=== PATIENT | female | born 1970 | race Caucasian/White ===

== ENCOUNTER 2021-09-23 20:31 | Emergency (ER) | payer OTHER ==
[~2021-09-23] VITALS: Ht 175.3 cm; Wt 134.7 kg
--- NOTE | 2021-09-23 21:18 | RAD ---
Exam: Abdomen one view INDICATION: Abdominal pain TECHNIQUE: Supine view the abdomen Comparisons: None FINDINGS: Air and stool are noted throughout the colon to level the rectum in a nonobstructive bowel gas patter n. Suspicious masses or calcifications. Visualized osseous structures are unremarkable. IMPRESSION: Nonobstructive bowel gas pattern. Electronically signed by: Mariela Hsu MD (09/23/2021 9:16 PM) [facility]
[2021-09-23] MEDS ORDERED: MAGN296S68 PO (21:35)
--- NOTE | 2021-09-23 21:35 | PHYS DOC ---
Past History Past Surgical History: Appendectomy, Tubal ligation Alcohol Use: Occasionally General Adult EDM: Chief Complaint: CONSTIPATION HPI: HPI: Patient is a 50-year-old female presents with crampy abdominal pain. Patient states that she has not a bowel movement in approximately 4 days. She has had some cramps worse yesterday and the day before, these have pretty much resolved today. She has been passing gas and small amounts of stool. She has not had any nausea, vomiting, fever or chest pain. She did try some MiraLAX at home but without relief. Review of Systems: Review of Systems: Constitutional: Denies fever Eyes: Denies change in visual acuity or eye pain HENT: Denies sore throat Respiratory: Denies shortness of breath Cardiovascular: Denies chest pain GI: Reports abd pain yesterday and day prior : Denies dysuria Musculoskeletal: Denies back or extremity injury Integument: Denies rash or skin lesions Neurologic: Denies headache, focal weakness or sensory changes All other systems were reviewed and found to be within normal limits, except as documented in this note. Allergies: Allergies: Allergies Coded Allergies Type Severity Reaction Last Updated Verified No Known Drug Allergies 09/23/21 No Physical Exam: PE: Constitutional: Well developed, well nourished, no acute distress, non-toxic appearance. HENT: Normocephalic, atraumatic, bilateral external ears normal, mucosa moist, nose normal. Eyes: EOMI, conjunctiva normal, no discharge. Neck: Normal range of motion, supple, no stridor, no meningeal signs. Cardiovascular: Regular rate and rhythm Lungs & Thorax: Bilateral breath sounds clear to auscultation Abdomen: Soft, no tenderness or obvious masses Skin: Warm, dry, no erythema, no rash. Extremities: No tenderness, no cyanosis, no clubbing, ROM intact, no edema. Neurologic: Alert and oriented, normal motor function, normal sensory function, no focal deficits noted. Psychologic: Affect normal, judgement normal, mood normal. Current Patient Data: Vital Signs: Vital Signs Date Time Temp Pulse Resp B/P (MAP) Pulse Ox O2 Delivery O2 Flow Rate FiO2 09/23/21 20:40 98.2 97 20 132/76 (94) 98 Room Air EKG: EKG: [] Radiology/Procedures: Radiology/Procedures: [] Impressions: PATIENT: ZOE JUAREZ ACCOUNT: [id number] : 1970 LOCATION: ER AGE: 50 SEX: F EXAM STATUS: REG ER ORD. PHYSICIAN: RAMON MILLER MD REASON: abd pain PROCEDURE: KUB Exam: Abdomen one view INDICATION: Abdominal pain TECHNIQUE: Supine view the abdomen Comparisons: None FINDINGS: Air and stool are noted throughout the colon to level the rectum in a nono bstructive bowel gas pattern. Suspicious masses or calcifications. Visualized osseous structures are unremarkable. IMPRESSION: Nonobstructive bowel gas pattern. Electronically signed by: Luis Echols MD (09/23/2021 9:16 PM) [facility] DICTATED AND SIGNED BY: LUIS ECHOLS MD DATE: 09/23/212114 CC: PCP,UNKNOWN; RAMON MILLER MD ~ Heart Score: C/O Chest Pain: No Risk Factors: Risk Factors: DM, Current or recent (<one month) smoker, HTN, HLP, family history of CAD, obesity. Risk Scores: Score 0 - 3: 2.5% MACE over next 6 weeks - Discharge Home Score 4 - 6: 20.3% MACE over next 6 weeks - Admit for Clinical Observation Score 7 - 10: 72.7% MACE over next 6 weeks - Early Invasive Strategies Course & Med Decision Making: Course & Med Decision Making There is a 50-year-old female with constipation. KUB was obtained, this is negative for evidence of obstruction or even evidence of severe constipation. On reevaluation the patient is still pain-free. We will hold off on any blood work or imaging studies at this time. She is to drink a bottle of magnesium citrate when she gets back home. Return to the emergency department if she develops fever or increase in pain, she is stable for discharge at this time. Pertinent Labs and Imaging studies reviewed. (See chart for details) [] Dragon Disclaimer: Dragon Disclaimer: This electronic medical record was generated, in whole or in part, using a voice recognition dictation system. Departure Departure: Impression: Primary Impression: Constipation Additional Impression: Abdominal pain Disposition: HOME / SELF CARE / HOMELESS Condition: STABLE Referrals: PCP,UNKNOWN (PCP) Patient Instructions: Abdominal Pain, Constipation, Adult Scripts Magnesium Citrate (MAGNESIUM CITRATE) 296 Ml Solution 296 ML PO ONCE PRN for CONSTIPATION, #296 ML Prov: RAMON MILLER MD 09/23/21 RAMON MILLER MD Sep 23, 2021 21:35
[2021-09-23 21:40] VITALS: BP 122/75
== END 2021-09-23 21:40 | disposition home or self-care (01) ==
LOC: ER 20:31
DX: K59.00 Constipation, unspecified (principal); R10.9 Unspecified abdominal pain; Z90.89 Acquired absence of other organs; Z98.51 Tubal ligation status
CPT/HCPCS: 74018; 99283